=== PATIENT | female | born 1990 | race Caucasian/White ===

== ENCOUNTER 2017-01-18 22:07 | Emergency (ER) | payer OTHER ==
[~2017-01-18] VITALS: Ht 149.9 cm; Wt 94.3 kg
[2017-01-18 22:20] VITALS: BP 132/79
--- NOTE | 2017-01-19 00:16 | NUR ---
TO ER BED 4
--- NOTE | 2017-01-19 00:17 | NUR ---
PATIENT PRESENTS TO ED WITH C/O GEN WEAKNESS X 2 DAYS WITH VOMITING. PT STATES SHE IS 24 WEEKS AND IS HAVING A MIGRAINE . DENIES N/V/D; SKIN IS PINK/WARM/DRY; AAOX4 WITH EVEN AND STEADY GAIT; LUNGS CLEAR BL; HR EVEN AND REGULAR; PT DENIES ANY FEVER, CP, SOB, OR COUGH AT THIS TIME; PATIENT STATES PAIN OF 7/10 AT THIS TIME; VSS; PATIENT POSITIONED FOR COMFORT; HOB ELEVATED; BEDRAILS UP X2; BED DOWN. ER MD MADE AWARE OF PT STATUS.
--- NOTE | 2017-01-19 00:32 | NUR ---
Patient being evaluated by physician DR SPARKS at bedside. DR SPARKS STATED TO BRING PT TO LABOR AND DELIVERY
[2017-01-19] MEDS ORDERED: NACL 0.9% 1,000 ML IV ONE (01:00)
--- NOTE | 2017-01-19 01:43 | NUR ---
GEOVANNI ALSO NOTED THAT THERE ARE NO CONTRACTIONS NOTED.
--- NOTE | 2017-01-19 01:43 | NUR ---
ER MD DR SPARKS MADE AWARE OF PT STATUS
--- NOTE | 2017-01-19 01:43 | NUR ---
JEREMY CLEARED BY OB; FHT RIGHT BELOW UMBILICUS 135-145 BPM;
[2017-01-19 02:14] VITALS: BP 122/66
[2017-01-19 02:20] LABS: BASOPHILS # (AUTO) 0.2 K/uL (0.00-0.22); BASOPHILS % (AUTO) 1.3 % (0.0-2.0); EOSINOPHILS # (AUTO) 0.2 K/uL (0-0.4); EOSINOPHILS % (AUTO) 1.6 % (0.0-4.0); HEMATOCRIT 35.1 % (36-48); HEMOGLOBIN 11.5 g/dL (12.0-16.0); LYMPHOCYTES # (AUTO) 2.3 K/uL (2.5-16.5); LYMPHOCYTES % (AUTO) 16.5 % (20.5-51.1); MEAN CORPUSCULAR HEMOGLOBIN 27 pg (27-31); MEAN CORPUSCULAR HGB CONC 33 g/dL (33-37); MEAN CORPUSCULAR VOLUME 84 fL (80-94); MONOCYTES # (AUTO) 0.7 K/uL (0.8-1.0); MONOCYTES % (AUTO) 5.2 % (1.7-9.3); NEUTROPHILS # (AUTO) 10.5 K/uL (1.8-7.7); NEUTROPHILS % (AUTO) 75.4 % (42.2-75.2); PLATELET COUNT (AUTO) 438 K/uL (140-450); RED CELL DISTRIBUTION WIDTH 14.3 % (11.6-13.7); WHITE BLOOD COUNT (AUTO) 13.9 K/uL (4.8-10.8)
[2017-01-19 02:32] LABS: ANION GAP 10.8 (8-16); CARBON DIOXIDE 25.6 mmol/L (21-32); CREATININE 0.5 mg/dL (0.6-1.3); POTASSIUM 3.4 mmol/L (3.5-5.1)
[2017-01-19 02:38] LABS: ALBUMIN 2.8 g/dL (3.4-5.0); TOTAL BILIRUBIN 0.4 mg/dL (0.0-1.0)
[2017-01-19 03:16] LABS: BILIRUBIN,URINE NEGATIVE (NEGATIVE); BLOOD, URINE TRACE-I (NEGATIVE); COLOR,URINE YELLOW (YELLOW); LEUKOCYTE ESTERASE ,URINE NEGATIVE (NEGATIVE); NITRITE, URINE NEGATIVE (NEGATIVE); UGLUCOSE NEGATIVE (NEGATIVE)
[2017-01-19 03:19] LABS: APPEARANCE,URINE SLIGHTLY HAZY (CLEAR)
[2017-01-19 03:24] LABS: RBC,URINE 0-5 (RARE) /HPF (0-5)
[2017-01-19 03:25] LABS: URINE AMORPHOUS URATE 1+ /HPF (None Seen)
--- NOTE | 2017-01-19 04:05 | NUR ---
IV removed, catheter intact and site benign. Applied folded 4x4 gauze and tape to stop bleeding.
--- NOTE | 2017-01-19 04:09 | NUR ---
Patient discharged with v/s stable. Written and verbal after care instructions given and explained. Patient alert, oriented and verbalized understanding of instructions. Ambulatory with steady gait. All questions addressed prior to discharge. ID band removed. Patient advised to follow up with PMD. Rx of MACROBID AND VIT B6 100MG given. Patient educated on indication of medication including possible reaction and side effects. Opportunity to ask questions provided and answered.
[2017-01-19 04:10] VITALS: BP 119/73
== END 2017-01-19 04:10 | disposition home or self-care (01) ==
LOC: MED 22:07 → MLD 01-19 00:39 → UNDOADMOB 01-19 00:39 → MED 01-19 04:10
DX: O23.42 Unspecified infection of urinary tract in pregnancy, second trimester (principal); O21.2 Late vomiting of pregnancy; Z3A.25 25 weeks gestation of pregnancy
CPT/HCPCS: 36415; 80053; 81001; 81025; 85025; 87086; 99284